=== PATIENT | female | born 1955 | race Caucasian/White ===

== ENCOUNTER → 2021-01-25 08:43 | Outpatient (CLI) | payer MEDICARE, SELFPAY ==
[2021-01-25 09:14] VITALS: BP 165/55; PULSE 83; RESP 16; TEMP 37.1; O2SAT 100; BMI 29.0
[2021-01-25] MEDS: Acetaminophen 325 MG Tablet 650 MG PO (09:25)
[2021-01-25 09:52] VITALS: BP 137/65; PULSE 83; RESP 16; TEMP 37.2
[2021-01-25 10:52] VITALS: BP 138/73; PULSE 80; RESP 16; TEMP 36.8; O2SAT 98
[2021-01-25 11:40] VITALS: BP 149/71; PULSE 83; RESP 16; TEMP 37; O2SAT 98
[2021-01-25] MEDS: 0.9% NaCl Peripheral Flush Adult/Peds IV (12:04)
== END ==
PROVIDERS: Referring Provider Internal Medicine Hematology & Oncology; Visit Provider Internal Medicine Hematology & Oncology
DX: C90.00 Multiple myeloma not having achieved remission (principal); D64.81 Anemia due to antineoplastic chemotherapy
CPT/HCPCS: 36430; 86850; 86900; 86901; 86920; 86922; J7040; J7050; P9040; A4216

== ENCOUNTER → 2021-03-19 09:54 | Outpatient (CLI) | payer MEDICARE, SELFPAY ==
[2021-01-25 09:14] VITALS: BMI 29.0
[2021-03-19 10:00] VITALS: BP 155/80; PULSE 75; RESP 16; TEMP 36.8; O2SAT 98; BMI 28.8
[2021-03-19] MEDS: 0.9 % NaCl (Sterile) Posiflush 10 mL IV (10:00)
[2021-03-19] MEDS: Acetaminophen 325 MG Tablet 650 MG PO (10:13)
[2021-03-19 10:37] VITALS: BP 132/76; PULSE 67; RESP 16; TEMP 36.8; O2SAT 98
[2021-03-19 11:37] VITALS: BP 154/94; PULSE 68; RESP 16; TEMP 36.7; O2SAT 99
[2021-03-19 12:55] VITALS: BP 154/81; PULSE 76; RESP 16; TEMP 36.7; O2SAT 98
[2021-03-19] MEDS: 0.9% NaCl VAD Flush IV (12:55)
== END ==
PROVIDERS: Referring Provider Internal Medicine Hematology & Oncology; Visit Provider Internal Medicine Hematology & Oncology
DX: D49.9 Neoplasm of unspecified behavior of unspecified site (principal); D63.0 Anemia in neoplastic disease
CPT/HCPCS: 36430; 86850; 86900; 86901; 86920; 86922; J7040; J7050; P9016; A4216

== ENCOUNTER 2021-09-27 09:26 | Outpatient (CLI) | payer MEDICARE, SELFPAY ==
[2021-09-27 09:40] VITALS: BP 149/57; PULSE 92; RESP 16; TEMP 36.6; O2SAT 100
[2021-09-27] MEDS: Acetaminophen 325 MG Tablet 650 MG PO (09:45)
[2021-09-27] MEDS: 0.9% NaCl Peripheral Flush Adult/Peds IV ×2 (09:53→12:03)
[2021-09-27 10:07] VITALS: BP 134/50; PULSE 92; RESP 16; TEMP 37
[2021-09-27 11:07] VITALS: BP 160/60; PULSE 96; RESP 16; TEMP 36.9; O2SAT 98
[2021-09-27 12:06] VITALS: BP 170/71; PULSE 90; RESP 20; TEMP 36.3; O2SAT 100
== END 2021-09-27 23:59 | disposition short-term general hospital (02) ==
PROVIDERS: Referring Provider Internal Medicine Hematology & Oncology; Visit Provider Internal Medicine Hematology & Oncology
DX: D64.9 Anemia, unspecified (principal); C90.00 Multiple myeloma not having achieved remission
CPT/HCPCS: 36430; 86850; 86900; 86901; 86920; 86922; J7040; P9040; A4216

== ENCOUNTER 2021-10-02 10:43 | Outpatient (CLI) | payer MEDICARE, SELFPAY ==
--- NOTE | 2021-10-02 11:00 | PET_ITS ---
EXAMINATION: FDG PET-CT ? Head to Toe INDICATIONS: A 65-year-old female with reported history of multiple myeloma presenting for restaging examination. COMPARISON EXAMINATION: CT of the chest report dated 09/30/21, FDG PET-CT report dated 09/11/20 INDEX LESION SIZE SUV INTERPRETATION Seventh-tenth thoracic vertebrae, extending to mediastinum, right hemithorax pleural interface 10.4 (max) Fulfills quantitative criteria for viable neoplasm Left anterior third rib, extending to left breast, left hemithorax pleural interface 7.6 (max) Fulfills quantitative criteria for viable neoplasm Multifocal appendicular, axial skeletal structures, soft tissue densities 12.7 (max) Fulfills quantitative criteria for viable neoplasm TECHNIQUE: Following the intravenous administration of 12.39 mCi of F-18 deoxyglucose via the right antecubital fossa, multiplanar image acquisitions of the head, neck, chest, abdomen and pelvis, lower extremities to the level of the bilateral feet, obtained at one hour post radiopharmaceutical administration contemporaneously interpreted with the current CT of the head, neck, chest, abdomen and pelvis, lower extremities to the level of the bilateral feet, dated 10/02/[address] of the chest report dated 09/30/21, FDG PET-CT report dated 09/11/20 reveals: BLOOD GLUCOSE LEVEL:?? 113 mg/dl?HEIGHT:?58 inches?WEIGHT: 120 lbs. FINDINGS: 1. On the current examination there is an increase in 18-F fluorine labeled glucose metabolism manifest in the seventh-tenth thoracic vertebra extending into soft tissue mass formation in the mediastinum and right lower posteromedial hemithorax. The calculated maximal standard uptake value is 10.4. 2. Heterogeneous radiopharmaceutical concentration is observed in the left anterolateral chest wall involving the third rib extending into the left hemithorax and left breast. The calculated maximal standard uptake value is 7.6. 3. Innumerable foci of increased 18-F labeled glucose metabolism are otherwise noted throughout the visualized appendicular and axial skeletal structures, the left frontal, right temporal and right vertex parietal calvarium, as well as extraosseous foci within the subcutaneous tissues. The calculated maximal standard uptake value is 12.7. 4. Normal physiologic distribution of the radiopharmaceutical is apparent in the hepatic (2.4) and splenic parenchyma, both renal units, bladder and visualized intestinal tract. Symmetric glucose metabolism is evident in the occipital, frontal, parietal and temporal lobes of the cerebral cortex, as well as normal visualization of the basal ganglia and cerebellar hemispheres. Diffuse radiopharmaceutical concentration is noted in all four quadrants of the abdomen and pelvis. Pertinent CT findings are as follows: CHEST: Pam-cath placement is noted. There is atherosclerotic calcification defined in the thoracic aorta without evidence of dilatation-aneurysm formation. Subcentimeter bilateral axillary and retropectoral soft tissue densities with fatty hilus are ametabolic. There are no parenchymal densities-nodules defined in the right and left hemithorax with discernible quantitatively significant increased FDG uptake. ABDOMEN AND PELVIS: Right and left subcentimeter inguinal soft tissue densities are ametabolic. Subcentimeter retroperitoneal soft tissue defines no evidence of increased tracer uptake. SKELETAL: Homogenous mineralization is defined throughout the visualized axial skeletal structures with evidence of lytic, mixed sclerotic-lytic changes multifocally apparent with varying degrees of increased glucose metabolism, as well as soft tissue mass formation in the previously described abnormalities. PET/PET/CT Tumor WB Subs IMPRESSION: 1. ABNORMAL EXAMINATION INDICATIVE OF MALIGNANT VIABLE NEOPLASM. 2. Increased glucose concentration currently defined in the seventh-tenth thoracic vertebrae extending into the mediastinum and right hemithorax pleural interface fulfills quantitative criteria for viable neoplasia. 3. Enhanced tracer uptake demonstrated in the left anterior third rib extending into the left hemithorax pleural interface and left breast, periosseous soft tissues fulfills quantitative criteria for viable neoplasm. 4. Multifocal appendicular and axial skeletal hypermetabolic foci fulfill quantitative criteria for viable osseous neoplasia. (Nelson et al, Clinical Nuclear Medicine, 29:161, 2004). 5. Overall, compared to the prior FDG PET study report dated 09/11/20, there is currently demonstrated multifocal defined viable neoplastic disease. Electronic Signature Zafar Posada D.O. Accurate Quantification of SUVs for this report are calculated using the exclusive [employer]. ([place]. Patent No. [id number]). Standardization and correction of the FDG SUV metric via [employer] technology allow for vendor non-specific objective quantitative examination comparison and optimization of the sensitivity and specificity of the FDG PET-CT examination. Electronically Signed: Zafar Posada DO at 21:21 EST ,
== END 2021-10-02 23:59 | disposition home or self-care (01) ==
PROVIDERS: Referring Provider Internal Medicine Hematology & Oncology; Visit Provider Internal Medicine Hematology & Oncology
DX: C90.00 Multiple myeloma not having achieved remission (principal); J84.9 Interstitial pulmonary disease, unspecified; R91.8 Other nonspecific abnormal finding of lung field
CPT/HCPCS: 78816; A9552

== ENCOUNTER 2021-10-11 12:49 | Outpatient (CLI) | payer MEDICARE, SELFPAY ==
[2021-10-11] MEDS: 0.9% NaCl Peripheral Flush Adult/Peds IV ×2 (13:09→15:21)
[2021-10-11 13:10] VITALS: BP 137/53; PULSE 97; RESP 18; TEMP 35.7; O2SAT 100
[2021-10-11 13:42] VITALS: BP 148/76; PULSE 97; RESP 16; TEMP 36.3; O2SAT 100
[2021-10-11 14:42] VITALS: BP 160/72; PULSE 99; RESP 16; TEMP 36.6; O2SAT 99
[2021-10-11 15:08] VITALS: BP 163/74; PULSE 101; RESP 20; TEMP 36.2; O2SAT 100
== END 2021-10-11 23:59 | disposition home or self-care (01) ==
LOC: MEDOUTP 12:50
PROVIDERS: Referring Provider Internal Medicine Hematology & Oncology; Visit Provider Internal Medicine Hematology & Oncology
DX: Z51.89 Encounter for other specified aftercare (principal); C90.00 Multiple myeloma not having achieved remission
CPT/HCPCS: 36430; 86850; 86900; 86901; 86920; J7040; P9016; A4216

== ENCOUNTER 2021-10-26 08:52 | Outpatient (CLI) | payer MEDICARE, SELFPAY ==
[2021-10-26] VITALS (11 sets, daily range): BP systolic 134–169; BP diastolic 28–95; PULSE 86–100; RESP 17–18; TEMP 36.4–37.2; O2SAT 94–100
[2021-10-26] MEDS: Acetaminophen 325 MG Tablet 650 MG PO (09:36)
[2021-10-26] MEDS: 0.9 % NaCl (Sterile) Posiflush 10 mL IV (09:38)
[2021-10-26] MEDS: 0.9% Saline Lock 10 ML Syringe IV (17:01)
== END 2021-10-26 23:59 | disposition home or self-care (01) ==
LOC: MEDOUTP 08:52 → MS3 08:53
PROVIDERS: Visit Provider Internal Medicine Hematology & Oncology
DX: Z51.89 Encounter for other specified aftercare (principal); C90.02 Multiple myeloma in relapse
CPT/HCPCS: 36430; 86850; 86900; 86901; 86920; 86922; J7040; P9016; A4216

== ENCOUNTER 2021-11-07 14:36 | Emergency (ER) | payer MEDICARE, MEDICAID, SELFPAY ==
[2021-11-07 14:40] VITALS: BP 133/114; PULSE 84; RESP 16; TEMP 36.2; O2SAT 97; BMI 21.1
--- NOTE | 2021-11-07 14:59 | EDS_ITS ---
HPI History of Present Illness Chief Complaint: Abn Labs Detail of Chief Complaint: Failure to thrive, symptomatic anemia, multiple myeloma Informant: patient and family (Person sister and brother. 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 She has been spoken to regarding hospice. As of 2 weeks ago she was reluctant to not be treated and for hospice to speak with her. She presents from Dr. Balderas's office. She is receptive to hospice and understands that she is not able to care for herself. Her most recent hemoglobin is 7. Her platelet count was 132. Patient has relapsing multiple myeloma with partial response to treatment initially. She has not responded to most recent treatment and treatment was discontinued. She has had issues with hypercalcemia and received Zometa. Presently she complains of pain all over bruising all over from recent falls and the multimyeloma that is resistant to treatment. She denies blood in her urine or urinary symptoms. Denies black or maroon-colored stool. She is not on an anticoagulant. Prior similar symptoms: Yes Recent Illness/Hospitalization: Yes [facility] Medical History (Updated 11/07/21 @ 16:[address] Hal Woodward MD) Anxiety Depression Multiple myeloma Schizophrenia Medical History no medical history no medical history (Relapsing refractory multiple myeloma, history of hyper calcium Jo also history of paranoid schizophrenia) Home Medications cyanocobalamin (vitamin B-12) 2,500 mcg SUBLINGUAL DAILY 11/07/21 [History Last Taken Unknown] dexamethasone 2 mg PO BID 11/07/21 [History Last Taken Unknown] duloxetine [Cymbalta] 30 mg PO DAILY 11/07/21 [History Last Taken Unknown] famciclovir 500 mg PO BID 11/07/21 [History Last Taken Unknown] folic acid 1 mg PO DAILY 11/07/21 [History Last Taken Unknown] granisetron HCl [Kytril] 1 mg PO Q12H PRN 11/07/21 [History Last Taken Unknown] morphine 15 mg PO BID 11/07/21 [History Last Taken Unknown] potassium chloride 20 meq PO TID 11/07/21 [History Last Taken Unknown] quetiapine 400 mg PO DAILY 11/07/21 [History Last Taken Unknown] quetiapine [Seroquel] 100 mg PO DAILY 11/07/21 [History Last Taken Unknown] sertraline 100 mg PO BID 11/07/21 [History Last Taken Unknown] Allergy/AdvReac Type Severity Reaction Status Date / Time acyclovir Allergy Rash Verified 11/07/21 14:39 amoxicillin Allergy Rash Verified 11/07/21 14:39 azithromycin Allergy Rash Verified 11/07/21 14:39 [email or web address] [From Revlimid] Allergy Rash Verified 11/07/21 14:39 [email or web address] [From Velcade] AdvReac Other Verified 11/07/21 14:39 Surgical History unable to obtain unable to obtain Social History (Updated 11/07/21 @ 15:[address] Hal Woodawrd MD) household members: family Smoking Status: Unknown if ever smoked substance use type: does not use ROS ROS ED Review of Systems ROS Unobtainable: due to mental condition Constitutional Constitutional ED: Reports sweats and weight loss; Denies chills, fever(s) or subjective Eyes Eyes: Denies blurry vision, change in vision or diplopia ENT ENT ED: Denies ear pain, rhinorrhea or sore throat Cardiovascular Cardiovascular: Reports chest pain; Denies orthopnea, palpitations or racing heartbeat Respiratory/Chest Respiratory/Chest: Reports dyspnea and dyspnea on exertion; Denies cough, orthopnea or sputum Gastrointestinal Gastrointestinal: Denies abdominal pain, diarrhea, melena, nausea or vomiting Genitourinary Genitourinary ED: Denies dysuria, hematuria or urinary frequency Musculoskeletal Musculoskeletal: Reports arthralgias, back pain, myalgias and neck pain Integumentary Reports Abrasions and other Details: Multiple bruises to the torso and upper and lower extremities ; Denies rash Neurologic Neurologic: Reports weakness Psychiatric Psychiatric: Reports anxiety and depression Hematologic/Lymphatic Hematologic/Lymphatic: Reports anemia and easy bruising EXAM Physical Exam Const Vital Signs: 11/07/21 14:40 11/07/21 15:12 Temperature 97.2 F L Temperature Source Temporal Pulse Rate 84 Respiratory Rate 16 Respiratory Effort Normal Non-Labored Respiratory Pattern Normal Blood Pressure 133/114 H Blood Pressure Mean 120 Pulse Ox 97 Oxygen Delivery Method Room Air Positive well developed and cachectic General Appearance ED: well developed, cachectic and NAD; Negative for cyanotic or diaphoretic Nutritional Appearance: cachectic HEENT Reports moist mucous membranes Negative for trauma or tenderness Eyes PERRL and EOMs intact bilaterally General Eye ED: Yes pale conjunctiva; Negative for scleral icterus Neck no lymphadenopathy, supple and no JVD Chest Wall Negative for inspection of chest normal or palpation of chest normal Resp normal respiratory effort and clear to auscultation bilaterally Cardio regular rate, regular rhythm, S1 normal heart sound and S2 normal heart sound; Negative for no murmurs Rate: other Other Details: Grade 1/6 systolic murmur suspect hyperdynamic due to her anemia. GI normal to inspection, nondistended, normoactive bowel sounds and non-tender GI Narrative: Multiple bruises noted. Palpation: soft Back/Spine no CVA tenderness Cervical Spine: Negative for cervical spine tenderness Thoracic Spine / Upper Back: Negative for thoracic spinal tenderness Extremity Negative for normal to inspection Extremity Narrative: Multiple bruises noted over upper and lower extremities. She is able to move all of her extremities. General Extremety ED: Negative for edema or tenderness General Extremity: Negative for edema Neuro oriented x3 Sensorium / Orientation: alert Psych Mood & Affect: depressed Skin No no rashes or lesions noted and No no wounds Skin Narrative: Multiple contusions and bruises noted to be on 5 MDM MDM MDM Narrative Medical decision making narrative: Spoke to patient's brother who is a computer operations supervisor/oncologist. Received fax note from Dr. Balderas's office for today's visit. Hospice has been contacted and will evaluate patient in the emergency department and will determine work-up and treatment after evaluation. DNR Comfort Care document was completed by me after discussion with patient, family members and reading note faxed from Dr. Balderas's office. Patient was accepted by hospice. Arrangements are being made to transfer to the the hospice unit. Discharge Plan Triage Chief Complaint: Abn Labs ED Provider: Hal Woodward Dx/Rx/DC Orders Clinical Impression: Symptomatic anemia, Signs and symptoms of anemia, Multiple myeloma with failed remission, Thrombocytopenia, Falls frequently, Contusion, multiple sites of trunk, Multiple leg contusions, Contusion, shoulder and upper arm, multiple sites, Contusion of multiple sites of left shoulder and upper arm Prescriptions: No Action dexamethasone 2 mg tablet 2 mg PO BID RF: 0 potassium chloride 10 mEq capsule, extended release 20 meq PO TID RF: 0 sertraline 100 mg tablet 100 mg PO BID RF: 0 granisetron HCl [Kytril] 1 mg Tablet 1 mg PO Q12H PRN (Reason: Nausea) RF: 0 famciclovir 500 mg tablet 500 mg PO BID RF: 0 folic acid 1 mg Tablet 1 mg PO DAILY RF: 0 morphine 15 mg tablet extended release 15 mg PO BID RF: 0 duloxetine [Cymbalta] 30 mg capsule,delayed release(DR/EC) 30 mg PO DAILY RF: 0 quetiapine [Seroquel] 50 mg tablet 100 mg PO DAILY RF: 0 quetiapine 400 mg tablet 400 mg PO DAILY RF: 0 cyanocobalamin (vitamin B-12) 5,000 mcg Tablet, Sublingual 2,500 mcg SUBLINGUAL DAILY RF: 0 Referrals: PODUGU,BRAULIO [Other] Disposition Disposition: Transfer to Another Type [facility]
[2021-11-07] MEDS: HYDROmorphone 0.5 MG/0.5 ML SYRINGE IV (15:19)
--- NOTE | 2021-11-07 16:03 | NURSING ---
CALLED [facility], ETA IS 90 MIN
== END 2021-11-07 16:58 | disposition other institution (70) ==
PROVIDERS: Emergency Provider Emergency Medicine; Visit Provider Emergency Medicine
DX: D64.9 Anemia, unspecified (principal); C90.02 Multiple myeloma in relapse; F20.9 Schizophrenia, unspecified; D69.6 Thrombocytopenia, unspecified; R06.00 Dyspnea, unspecified; R62.7 Adult failure to thrive; M89.8X9 Other specified disorders of bone, unspecified site; R29.6 Repeated falls; S20.20XA Contusion of thorax, unspecified, initial encounter; S40.021A Contusion of right upper arm, initial encounter; S40.012A Contusion of left shoulder, initial encounter; S80.11XA Contusion of right lower leg, initial encounter; S80.12XA Contusion of left lower leg, initial encounter; W19.XXXA Unspecified fall, initial encounter; Z79.899 Other long term (current) drug therapy
CPT/HCPCS: 96374; 99285; A4216